=== PATIENT | female | born 1965 | race Native Hawaiian/Other Pacific Islander ===

== ENCOUNTER 2017-04-28 08:12 | Outpatient (CLI) | payer OTHER ==
[2017-04-28] MEDS ORDERED: LATUDA80 MG OR (08:33)
[2017-04-28] MEDS ORDERED: LAMO100T OR (08:34)
[2017-04-28] MEDS ORDERED: TRAZ100T OR (08:35)
[2017-04-28] MEDS ORDERED: REMERON SOLTAB15 MG OR (10:06)
== END 2017-04-28 08:16 | disposition short-term general hospital (02) ==
LOC: AMB 08:12
DX: F41.0 Panic disorder [episodic paroxysmal anxiety] (principal); R55 Syncope and collapse
CPT/HCPCS: A0425; A0427

== ENCOUNTER 2017-07-27 13:30 | Observation (INO) | payer OTHER ==
[2017-07-27] VITALS (18 sets, daily range): BP systolic 89–156; BP diastolic 59–79; TEMP 98.1–98.9; Ht 162.6 cm; Wt 89.9 kg
[~2017-07-27] VITALS: Ht 162.6 cm; Wt 89.9 kg
[~2017-07-27 13:30] MED LIST: LAMO100T OR; LATUDA80 MG OR; REMERON SOLTAB15 MG OR; TRAZ100T OR
[2017-07-27 14:03] LABS: PLATELET COUNT 161 K/uL (152-353)
[2017-07-27 14:09] LABS: POTASSIUM 3.2 mmol/L (3.6-5.2)
[2017-07-28] VITALS (43 sets, daily range): BP systolic 92–170; BP diastolic 48–77; TEMP 97.6–98.9
[2017-07-28 06:14] LABS: PLATELET COUNT 167 K/uL (152-353)
[2017-07-28 06:28] LABS: POTASSIUM 3.4 mmol/L (3.6-5.2)
[2017-07-28] MEDS ORDERED: CLON0.1T16 PO (11:23)
[2017-07-28] MEDS ORDERED: CLON1TAB18 PO (11:24)
[2017-07-29] VITALS (21 sets, daily range): BP systolic 101–135; BP diastolic 60–93; TEMP 97.2–98.8
[2017-07-29 06:55] LABS: POTASSIUM 3.3 mmol/L (3.6-5.2)
[2017-07-29 06:59] LABS: PLATELET COUNT 144 K/uL (152-353)
== END 2017-07-29 15:50 | disposition other institution (70) ==
LOC: ED 13:30 → ICU 16:00
DX: T43.212A Poisoning by selective serotonin and norepinephrine reuptake inhibitors, intentional self-harm, initial encounter (principal); T42.6X2A Poisoning by other antiepileptic and sedative-hypnotic drugs, intentional self-harm, initial encounter; Y92.89 Other specified places as the place of occurrence of the external cause; F32.89 Other specified depressive episodes; E87.6 Hypokalemia; E83.51 Hypocalcemia
CPT/HCPCS: 36415; 80053; 80307; 80320; 80329; 82491; 82542; 83735; 85027; 93005; 99220; 99285; G0378; J2405

== ENCOUNTER 2018-09-04 14:38 | Emergency (ER) | payer OTHER ==
[~2018-09-04] VITALS: Ht 162.6 cm; Wt 89.8 kg
[~2018-09-04 14:38] MED LIST changes: +CLON0.1T16 PO; +CLON1TAB18 PO
[2018-09-04 14:43] VITALS: BP 136/70; TEMP 97
[2018-09-04 15:18] LABS: PLATELET COUNT 195 K/uL (152-353)
[2018-09-04 15:24] LABS: POTASSIUM 3.8 mmol/L (3.6-5.2); SODIUM 136 mmol/L (136-145)
== END 2018-09-04 16:28 | disposition home or self-care (01) ==
LOC: ED 14:38
PROVIDERS: Family Medicine
DX: R07.89 Other chest pain (principal); R06.09 Other forms of dyspnea
CPT/HCPCS: 36415; 80053; 81000; 82550; 84484; 85027; 93005; 99283

== ENCOUNTER 2019-10-15 10:50 | Outpatient (CLI) | payer OTHER ==
[2019-10-15 11:48] LABS: PLATELET COUNT 167 K/uL (152-353)
[2019-10-15 12:01] LABS: POTASSIUM 4.1 mmol/L (3.6-5.2)
== END 2019-10-15 20:44 | disposition home or self-care (01) ==
LOC: RESP 10:50 → LABW 10:50
PROVIDERS: Podiatrist
DX: Z01.810 Encounter for preprocedural cardiovascular examination (principal); Z01.811 Encounter for preprocedural respiratory examination; Z01.812 Encounter for preprocedural laboratory examination; Z01.818 Encounter for other preprocedural examination
CPT/HCPCS: 36415; 80053; 80323; 84702; 85002; 85027; 93005

== ENCOUNTER 2019-12-22 09:32 | Emergency (ER) | payer OTHER ==
[~2019-12-22] VITALS: Ht 162.6 cm; Wt 89.8 kg
[2019-12-22 09:39] VITALS: BP 145/56; TEMP 98.9
== END 2019-12-22 10:32 | disposition home or self-care (01) ==
LOC: ED 09:32
DX: M54.5 Low back pain (principal); M62.830 Muscle spasm of back
CPT/HCPCS: 96372; 99282; J1885

== ENCOUNTER 2020-01-05 11:58 | Outpatient (CLI) | payer OTHER ==
[2020-01-05 12:45] LABS: POTASSIUM 4.2 mmol/L (3.6-5.2)
[2020-01-05 12:46] LABS: PLATELET COUNT 171 K/uL (152-353)
== END 2020-01-05 19:49 | disposition home or self-care (01) ==
LOC: LABW 11:58
PROVIDERS: ATTEND Podiatrist
DX: Z01.810 Encounter for preprocedural cardiovascular examination (principal); Z01.811 Encounter for preprocedural respiratory examination; Z01.812 Encounter for preprocedural laboratory examination
CPT/HCPCS: 36415; 80053; 85027

== ENCOUNTER 2020-01-19 09:06 | Outpatient (CLI) | payer OTHER | END 2020-01-19 23:57 | disposition home or self-care (01) | LOC: RAD 09:06 | PROVIDERS: ATTEND Nurse Practitioner Family | DX: M54.41 Lumbago with sciatica, right side (principal); M25.551 Pain in right hip ==

== ENCOUNTER 2020-12-15 14:00 | Emergency (ER) | payer OTHER ==
[~2020-12-15] VITALS: Ht 162.6 cm; Wt 101.2 kg
[2020-12-15 17:04] LABS: PLATELET COUNT 163 K/uL (152-353)
[2020-12-15 18:46] VITALS: BP 145/80; TEMP 98.3
== END 2020-12-15 18:46 | disposition home or self-care (01) ==
LOC: ED 14:00
PROVIDERS: Emergency Medicine Emergency Medical Services
DX: S29.012A Strain of muscle and tendon of back wall of thorax, initial encounter (principal); S39.012A Strain of muscle, fascia and tendon of lower back, initial encounter; X58.XXXA Exposure to other specified factors, initial encounter; Y92.89 Other specified places as the place of occurrence of the external cause
CPT/HCPCS: 80053; 81000; 82550; 85027; 96360; 96365; 96374; 99284; J1885